=== PATIENT | female | born 1970 | race African-American/Black ===

== ENCOUNTER 2020-12-03 13:37 | Emergency (ER) | payer MEDICARE, MEDICAID ==
[~2020-12-03] VITALS: Ht 167.6 cm; Wt 49.9 kg
[2020-12-03 17:59] VITALS: BP 120/85
== END 2020-12-03 18:09 | disposition home or self-care (01) ==
LOC: ER 13:37
DX: F41.9 Anxiety disorder, unspecified (principal); F32.9 Major depressive disorder, single episode, unspecified; F10.129 Alcohol abuse with intoxication, unspecified; Y90.9 Presence of alcohol in blood, level not specified

== ENCOUNTER 2020-12-22 21:44 | Emergency (ER) | payer BC, MEDICAID ==
[~2020-12-22] VITALS: Ht 152.4 cm; Wt 47.6 kg
[2020-12-22 22:05] VITALS: BP 122/88
== END 2020-12-23 00:35 | disposition left against medical advice (07) ==
LOC: EDBD 21:44 → EDUNIT# 21:44 → ER 21:44
DX: F41.9 Anxiety disorder, unspecified (principal); Z53.21 Procedure and treatment not carried out due to patient leaving prior to being seen by health care provider